=== PATIENT | male | born 1940 | race Hispanic/Latino ===

== ENCOUNTER → 2021-08-06 | Day surgery (SDC) | payer MEDICARE ==
[2021-08-04 14:34] LABS: BASOPHILS % 0.4 % (0.0-1.0); EOSINOPHILS # (AUTO) 0.2 (0.0-0.4); EOSINOPHILS % 2.2 % (0.0-6.0); HEMATOCRIT 39.2 % (38.2-49.6); HEMOGLOBIN 12.9 g/dL (14.0-18.0); LYMPHOCYTES # (AUTO) 1.8 (1.0-3.2); LYMPHOCYTES % 21.8 % (18.0-39.1); MEAN CORPUSCULAR HGB CONC 32.9 g/dL (31-35); MEAN CORPUSCULAR VOLUME 88.1 fL (81-99); MONOCYTES # (AUTO) 0.9 (0.2-0.8); NEUTROPHILS # (AUTO) 5.3 (2.1-6.9); NEUTROPHILS % 64.1 % (38.7-80.0); PLATELET COUNT 172 x10e3/uL (140-360); RED BLOOD COUNT 4.45 x10e6/uL (4.3-5.7); RED CELL DISTRIBUTION WIDTH 13.5 % (11.7-14.4)
[~2021-08-06] MED LIST: ATROVASTATIN PO; Aspirin PO; Clonidine PO; FLOMAX0.4 MG PO; Farxiga PO; Glimepiride PO; LIDOCAINE HCL 2% LOCAL INJ 5 ML SDV VIAL INJ ONE; Lisinopril PO; Metoprolol PO; PROPOFOL IV EMULSION 10 MG/ML 20 ML VIAL ONE; Pantoprazole PO; Sodium Bicarbonate PO; [UNRECOGNIZED DRUG - OTHER] PO; minoxidil PO
[2021-08-06 12:52] VITALS: BP 152/71
== END | disposition home or self-care (01) ==
LOC: OR 08:30
PROVIDERS: ATTEND Internal Medicine Gastroenterology
DX: K21.00 Gastro-esophageal reflux disease with esophagitis, without bleeding (principal); K29.70 Gastritis, unspecified, without bleeding; K44.9 Diaphragmatic hernia without obstruction or gangrene; E11.9 Type 2 diabetes mellitus without complications; I10 Essential (primary) hypertension; E78.5 Hyperlipidemia, unspecified; Z68.28 Body mass index [BMI] 28.0-28.9, adult; Z01.810 Encounter for preprocedural cardiovascular examination; Z01.812 Encounter for preprocedural laboratory examination; Z20.822 Contact with and (suspected) exposure to COVID-19
CPT/HCPCS: 36415 ×2; 43239; 82948; 85025; 93005; C9113; J2001; J2704; U0002